=== PATIENT | male | born 1945 | race African-American/Black ===

== ENCOUNTER 2016-05-25 09:20 | Emergency (ER) | payer MEDICARE ==
[~2016-05-25] VITALS: Ht 172.7 cm; Wt 104.0 kg
[~2016-05-25 09:20] MED LIST: ADVAIR DISK1 IN; ANTIVERT12.5 MG PO; AVELOX400 MG PO; BAYER ASA325 MG PO; DULERA1 AER IN; DUONEB INH; GLIPIZIDE10 MG PO; GLIPIZIDE5 M1 OR; GLUCOTROL XL5 MG PO; HYDROCHLOROT12.5 MG OR; HYDROCHLOROT12.5 MG PO; JANUVIA50 MG OR; LANTUS SOLOSTAR SC; LEVAQUIN750 MG PO; LISINOPRIL40 MG PO; Levaquin PO; MEDDOSEPAK PO; METFORMIN1000 MG PO; NIZORAL2 % EX; NORVASC PO; OMEPRAZOLE20 MG PO; PLAVIX75 MG PO; PRAVACHOL40 MG PO; PREDNISONE10 MG PO; PREDNISONE50 MG PO; PROTONIX40 MG PO; PROVENTIL HFA IN; ROBITUSSIN AC10 ML PO; SIMVASTATIN80 MG OR; TAM75CAP PO; VENTOLIN HF1 IN; ZANTAC 150 PO; ZETIA10 MG PO; ZITHROMAX250 MG PO
[2016-05-25] MEDS ORDERED: CORTISPORIN OTI10 M2 OT (09:44)
[2016-05-25 10:10] VITALS: BP 119/66
[2016-05-25] MEDS ORDERED: HYDROCHLOROT12.5 M1 PO (10:11)
[2016-05-25] MEDS ORDERED: METFORMIN500 M2 PO (10:12)
[2016-05-25] MEDS ORDERED: LANTUS100 MG/ML SC (10:14)
== END 2016-05-25 10:10 | disposition home or self-care (01) ==
LOC: ED 09:20
DX: H92.01 Otalgia, right ear (principal)